=== PATIENT | female | born 1990 | race Caucasian/White ===

== ENCOUNTER → 2017-12-28 | Outpatient (CLI) | payer MEDICAID ==
--- NOTE | 2017-12-28 12:30 | MR ---
EXAMINATION TYPE: MR knee LT wo con DATE OF EXAM: 12/28/2017 COMPARISON: Plain film 12/03/2017 HISTORY: Pain in left knee / Effusion, left knee TECHNIQUE: Multiplanar, multisequence imaging of the left knee is performed without IV contrast. FINDINGS: MEDIAL MENISCUS: Posterior horn of the medial meniscus shows some increased signal does not clearly e xtend to the articular surface LATERAL MENISCUS: Anterior and posterior horns are intact without tear. CRUCIATE LIGAMENTS: The anterior and posterior cruciate ligaments are intact and unremarkable. COLLATERAL LIGAMENTS: The medial collateral ligament and lateral collateral ligament complex are inta ct and unremarkable. EXTENSOR MECHANISM: Visualized quadriceps and patellar tendons are intact. EFFUSION: No significant suprapatellar joint effusion. POPLITEAL CYST: Minimal fluid in the semimembranosus gastrocnemius fossa TRICOMPARTMENT SPACES: Maintained CARTILAGE: Maintained, sclerotic focus seen on plain film correlates to bone island in the lateral fe moral condyle as well as medial metaphyseal tibia. BONE MARROW SIGNAL: No focal abnormal marrow signal is appreciated. OTHER: Minimal prepatellar subcutaneous edema is present along the proximal extent of the patellar t endon IMPRESSION: Nonspecific findings described above.
== END | disposition home or self-care (01) ==
LOC: RADMRIMAIN 08:37
PROVIDERS: ATTEND Orthopaedic Surgery Sports Medicine
DX: M94.8X6 Other specified disorders of cartilage, lower leg (principal); R60.0 Localized edema

== ENCOUNTER → 2021-06-27 | Outpatient (CLI) | payer MEDICAID ==
[2021-06-27 23:22] LABS: HCT 35.5 % (37.2-46.3); HGB 11.9 g/dL (12.0-15.0); MCH 30.4 pg (27.0-32.0); MCHC 33.5 g/dL (32.0-37.0); MCV 90.8 fL (80.0-97.0); Mean Platelet Volume 10.9 fL (9.5-12.2); Platelet Count 244 X 10*3/uL (140-440); RBC 3.91 X 10*6/uL (4.10-5.20); WBC 11.64 X 10*3/uL (4.50-10.00)
[2021-06-27 23:33] LABS: African American GFR (CKD) 137.7 (60.0-200.0); Non-African American GFR(CKD) 118.8 (60.0-200.0)
[2021-06-27 23:57] LABS: Hepatitis B Surface Antigen Nonreactive (Nonreactive)
[2021-06-28 01:13] LABS: HIV 2 AB Non-Reactive (Non-Reactive); HIV AB P24 Non-Reactive (Non-Reactive); HIV P24 AG Non-Reactive (Non-Reactive)
--- NOTE | 2021-06-28 06:32 | US ---
EXAMINATION TYPE: Transabdominal DATE OF EXAM: 06/27/2021 3:46 PM COMPARISON: NONE CLINICAL HISTORY: Z36.89 ENCOUNTER FOR OTHER SPECIFIED SCREENING. Dates. Positive beta-hCG test. EXAM PERFORMED: Transabdominal (TA) EXAM MEASUREMENTS: GESTATIONAL AGE / DATING Physician Established: Not yet established Dates by LMP: (12 weeks/1 days) EDC: 01/08/2022 Dates by First Scan: No previous this is first scan Dates by Current Scan for: (12 weeks/0 days) EDC: 01/09/2022 MATERNAL ANATOMY Uterus: 10.5 x 9.3 x 8.9 cm Right Ovary: 3.5 x 2.0 x 2.9 cm Left Ovary: 4.2 x 3.9 x 2.6 cm Post CDS / Adnexa: no free fluid Presence of free fluid: no Presence of subchorionic bleed: no GESTATION / SURVEY CRL: 5.3 cm (12 weeks/0 days) MSD: seen, not measured Yolk Sac (normal less than 6mm): Not visualized Heart Rate: 165 bpm Rhythm: Normal IUP: Viable IUP Date of LMP: 04/03/2021, G1 Beta HcG (if available): Not available at this time Right ovary lesion = 1.9 x 1.4 x 1.9 cm. Left ovary lesion - 3.6 x 3.4 x 2.5 cm. Single live intrauterine gestation as gestational sac and pole seen. No sac not identified. No free fluid is seen. Both ovaries present. Right ovary has 1.9 cm thin-walled cyst or cystic lesion. Left ovary as larger 3.6 cm slightly heterogeneous hyperechoic lesion could reflect hemorrhagic cyst. No suspicious extra ovarian adnexal masses. IMPRESSION: Single live intrauterine gestation is confirmed. Mean crown-rump length measures 5.3 cm c orresponding to 12 weeks 0 day old fetus.
[2021-06-30 06:06] LABS: Toxoplasma Antibody (IgG) >400.0 IU/mL (<7.2); Toxoplasma Antibody (IgM) <3.0 AU/mL (<8.0)
== END | disposition home or self-care (01) ==
LOC: RADUSWWP 15:26
PROVIDERS: ATTEND Obstetrics & Gynecology
DX: Z36.89 Encounter for other specified antenatal screening (principal)
CPT/HCPCS: 76801; 82565; 82947; 85027; 86762; 86777; 86778; 86780; 86850; 86900; 86901; 87340; 87390

== ENCOUNTER → 2021-08-08 | Outpatient (CLI) | payer MEDICAID ==
--- NOTE | 2021-08-08 10:56 | US ---
EXAMINATION TYPE: US OB anatomy transabd DATE OF EXAM: 08/08/2021 COMPARISON: First trimester ultrasound June 27, 2021 HISTORY: O36.62X0 MATERNAL CARE FOR EXCESS GROWTH TECHNIQUE: Transabdominal (TA) EXAM MEASUREMENTS: GESTATIONAL AGE / DATING Dates by LMP: (18 weeks/1 days) EDC: 01/08/2022 Dates by First Scan: (18 weeks/1 days) EDC: 01/08/2022 Dates by Current Scan for: (18 weeks/4 days) EDC: 01/05/2022 SURVEY IUP: Single PLACENTA: Anterior PREVIA: No previa CAROLINE: 10.55 cm Normal CERVICAL LENGTH (transabdominal: norm > 3.0cm): 4.5 cm BIOMETRY PRESENTATION: Vertex LIE: Longitudinal BPD: 4.18 cm 18 weeks / 5 days HC: 15.1 cm 18 weeks / 2 days AC: 12.56 cm 18 weeks / 2 days FL: 2.78 cm 18 weeks / 4 days ESTIMATED WEIGHT IN GRAMS: 234 grams ESTIMATED WEIGHT IN LBS/OZ: 0 lbs. 8 oz. WEIGHT PERCENTAGE BASED ON ESTABLISHED DATE: 57 % HC/AC: 1.2 Normal FL/AC: 22 Normal HEART RATE: 144 bpm RHYTHM: Normal ANATOMY SEEN (within normal limits): * Lateral Vent (< 1 cm) 0.6 cm * Cisterna Magna (< 1.1 cm) 0.4 cm * Nuchal Fold (< 0.6 cm) 0.3 cm * Cerebellum (varies with age) 1.7 cm Choroid Plexus (bilateral) Midline Falx Cavus Septi Pellucidi Four Chamber Heart Outflow tracts: LVOT/RVOT Stomach Situs Nose / Lips Diaphragm Kidneys (bilateral) Bladder Cord Insert Three Vessel Cord Longitudinal Spine Transverse Spine Arms (bilateral) Legs (bilateral) No abnormal cervical thinning. Single live intrauterine gestation redemonstrated. No placenta previa. Estimated amniotic fluid index within normal limits. biometry measurements congruent with sati sfactory interval growth. During Real-time scanning no anatomical abnormality identified. IMPRESSION: As above.
== END | disposition home or self-care (01) ==
LOC: RADUSWWP 08:50
PROVIDERS: ATTEND Obstetrics & Gynecology
DX: O36.62X0 Maternal care for excessive fetal growth, second trimester, not applicable or unspecified (principal)
CPT/HCPCS: 76811

== ENCOUNTER → 2021-09-26 | Outpatient (CLI) | payer MEDICAID ==
[2021-09-26 14:23] LABS: HCT 34.1 % (37.2-46.3); HGB 10.9 g/dL (12.0-15.0); MCH 30.9 pg (27.0-32.0); MCV 96.6 fL (80.0-97.0); Mean Platelet Volume 10.9 fL (9.5-12.2); NRBC Per 100 WBC 0 /100 WBCS (0.0-0.0); Platelet Count 220 X 10*3/uL (140-440); RBC 3.53 X 10*6/uL (4.10-5.20); RDW 13.1 % (11.5-14.5); WBC 8.59 X 10*3/uL (4.50-10.00)
== END | disposition home or self-care (01) ==
LOC: LABWHC1 08:40
PROVIDERS: ATTEND Obstetrics & Gynecology
DX: Z34.02 Encounter for supervision of normal first pregnancy, second trimester (principal)
CPT/HCPCS: 36415; 82950; 85027

== ENCOUNTER → 2021-12-08 | Outpatient (CLI) | payer MEDICAID ==
--- NOTE | 2021-12-09 07:12 | US ---
EXAMINATION TYPE: US OB >= 14 wk fetus DATE OF EXAM: 12/08/2021 COMPARISON: 08/08/2021 CLINICAL HISTORY: O36.63X0 LARGE FOR DATES Growth TECHNIQUE: Transabdominal (TA) GESTATIONAL AGE / DATING Physician Established: (35 weeks/4 days) EDC: 01/08/2022 Dates by LMP: (35 weeks/4 days) EDC: 01/08/2022 Dates by Current Scan: (35 weeks/4 days) EDC: 01/08/2022 Beta HCG (if available): Not available at this time SURVEY IUP: Single PLACENTA: Anterior/Fundal PREVIA: No Previa CAROLINE: 17.7 cm Normal CERVICAL LENGTH (transabdominal: norm > 3.0cm): 3.0 cm BIOMETRY PRESENTATION: Vertex BPD: 8.9 cm 36 weeks / 1 days HC: 31.7 cm 35 weeks / 5 days AC: 31.3 cm 35 weeks / 2 days FL: 6.8 cm 35 weeks / 0 days ESTIMATED WEIGHT IN GRAMS: 2637 grams ESTIMATED WEIGHT IN LBS/OZ: 5 lbs. 13 oz. WEIGHT PERCENTAGE BASED ON ESTABLISHED DATES: 40% HC/AC: 1.0 Normal FL/AC: 22% Normal HEART RATE: 132 bpm RHYTHM: Normal Single live IUP measuring 35 weeks 4 days. IMPRESSION: Single viable intrauterine 35 weeks 4 days
== END | disposition home or self-care (01) ==
LOC: RADUSWWP 16:08
PROVIDERS: ATTEND Obstetrics & Gynecology
DX: O36.63X0 Maternal care for excessive fetal growth, third trimester, not applicable or unspecified (principal); Z3A.00 Weeks of gestation of pregnancy not specified
CPT/HCPCS: 76805

== ENCOUNTER 2021-12-25 09:55 | Inpatient (IN) | payer MEDICAID ==
[2021-12-25] MEDS ORDERED: METHYLERGONOVINE 0.2 MG/ML 1 ML AMP IM PRN (10:38)
[2021-12-25] MEDS ORDERED: TERBUTALINE 1 MG/ML VIAL SQ PRN (10:38)
[2021-12-25] MEDS ORDERED: LIDOCAINE 0.5% (PF) 5 MG/ML (50 ML SDV) SQ PRN (10:38)
[2021-12-25] MEDS ORDERED: OXYTOCIN 10 UNIT/ML 1 ML VIAL IM PRN (10:38)
[2021-12-25] MEDS ORDERED: CARBOPROST TROMETHAMINE 250 MCG/ML 1 ML AMP IM PRN (10:38)
[2021-12-25] MEDS: LACTATED RINGERS 1,000 ML IV SCH ×2 (11:05→16:15)
[2021-12-25 11:27] LABS: Basophils # (A) 0.1 k/uL (0-0.2); Basophils % (A) 1 %; Eosinophils # (A) 0.1 k/uL (0-0.7); Eosinophils % (A) 1 %; HCT 35.3 % (34.0-46.0); HGB 11.8 gm/dL (11.4-16.0); Lymphocytes # (A) 2.1 k/uL (1.0-4.8); Lymphocytes % (A) 26 %; MCH 31.8 pg (25.0-35.0); MCHC 33.4 g/dL (31.0-37.0); MCV 95.2 fL (80.0-100.0); Mean Platelet Volume 9.2; Monocytes # (A) 0.3 k/uL (0-1.0); Monocytes % (A) 4 %; Neutrophils # (A) 5.3 k/uL (1.3-7.7); Neutrophils % (A) 65 %; Platelet Count 217 k/uL (150-450); RBC 3.71 m/uL (3.80-5.40); RDW 12.9 % (11.5-15.5); WBC 8.2 k/uL (3.8-10.6)
--- NOTE | 2021-12-25 11:31 | P.HPOB ---
History of Present Illness H&P Date: 12/25/21 Chief Complaint: Spotting and leaking of fluid with contractions This patient is a pleasant 31-year-old 1 para 0 female estimated date of confinement 01/08/2022 estimated gestational age 38 weeks gestation who presents to labor and delivery after having some spotting and small amount of leaking at 6 AM this morning. Patient's also been having contractions throughout the night. care has been uncomplicated. Her is the product of donor sperm. Growth ultrasounds have been normal. Patient is found to be in early labor with possible rupture membranes at 6 AM. Review of Systems Genitourinary: Reports Menstruation: Reports amenorrhea Past Medical History Past Medical History: No Reported History History of Any Multi-Drug Resistant Organisms: None Reported Past Surgical History: No Surgical Hx Reported Additional Past Surgical History / Comment(s): Patient's had Lasix surgery Past Anesthesia/Blood Transfusion Reactions: No Reported Reaction Past Psychological History: No Psychological Hx Reported Smoking Status: Never smoker Past Alcohol Use History: None Reported Past Drug Use History: None Reported - Past Family History Mother Family Medical History: No Reported History Medications and Allergies Home Medications Medication Instructions Recorded Confirmed Type Pnv 11/Iron Fum/Folic Acid/Om3 1 each PO DAILY 12/25/21 12/25/21 History [Virt-Srikanth Dha Softgel] Allergies Allergy/AdvReac Type Severity Reaction Status Date / Time No Known Allergies Allergy Verified 12/25/21 10:06 Exam Vital Signs Temp Pulse Resp BP Pulse Ox 12/25/21 10:33 97.2 F L 73 16 119/78 97 12/25/21 10:29 97.2 F L 73 16 119/78 97 Intake and Output 12/24/21 12/25/21 12/25/21 22:59 06:59 14:59 Other: Weight 70.307 kg - OBG Physical Exam Abdomen: bowel sounds normal, no diffuse tenderness, no bruit present, no guarding noted, no hepatomegaly, no splenomegaly, no mass Vulva: both: normal Vagina: normal moisture, no discharge Cervix: no lesion (Cervix is 3 cm 50% effaced and 0 station), no discharge Uterus: enlarged (Fundus is 37 cm) Results blood work shows she is A positive, rubella immune, RPR nonreactive, hepatitis B negative, HIV is nonreactive,: Was normal, group B strep was negative, ultrasound done on December 08 of the baby 5 lbs. 13 oz. Assessment and Plan Assessment: This is a pleasant 31-year-old 1 para 0 female 38-0/7 weeks gestation with early labor and possible rupture membranes at 6 AM this morning. Plan is augmentation of labor if necessary, pain control, and anticipate vaginal delivery. (1) 38 weeks gestation of Current Visit: Yes Status: Acute Code(s): Z3A.38 - 38 WEEKS GESTATION OF SNOMED Code(s): 55420181 (2) Spontaneous rupture of amniotic membranes Current Visit: Yes Status: Acute Code(s): VTY5206 - SNOMED Code(s): 401628166
[2021-12-25] MEDS ORDERED: OXYTOCIN 30 UNITS/500 ML NS 30 UNIT in SALINE 1 500ML.BAG IV SCH ×2 (13:00→18:58)
[2021-12-25] MEDS ORDERED: ZOLPIDEM 5 MG TAB PO PRN (18:58)
[2021-12-25] MEDS ORDERED: bisacodyL 10 MG SUPP RECTAL PRN (18:58)
[2021-12-25] MEDS ORDERED: HYDROCORTISONE 2.5% RECTAL CREAM 30 GM TUBE RECTAL PRN (18:58)
[2021-12-25] MEDS ORDERED: ACETAMINOPHEN TAB 325 MG TAB PO PRN (18:58)
[2021-12-25] MEDS ORDERED: diphenhydrAMINE 50 MG/ML 1 ML VIAL IVP PRN (18:58)
[2021-12-25] MEDS ORDERED: SIMETHICONE 80 MG CHEWABLE PO PRN (18:58)
[2021-12-25] MEDS ORDERED: LANOLIN CREAM 5 GM TUBE TOPICAL PRN (18:58)
[2021-12-25] MEDS ORDERED: diphenhydrAMINE 25 MG CAP PO PRN (18:58)
[2021-12-25] MEDS ORDERED: BENZOCAINE/MENTHOL SPRAY 1 GM/SPRAY AEROSOL TOPICAL PRN (18:58)
[2021-12-25] MEDS ORDERED: IBUPROFEN 600 MG TAB PO PRN (18:58)
--- NOTE | 2021-12-25 19:18 | P.PROBDLV ---
Vaginal Delivery Note - . Vaginal Delivery Note: The patient reached complete dilation after spontaneous rupture of membranes with clear fluid noted. She then began pushing. She pushed for a very short while and then 's head came to a crown. With one further push, the infant's head delivered across the perineum followed by the anterior shoulder. Nose and mouth were bulb suctioned at the perineum. With one further push, the remainder the infant easily delivered and was placed on mother's abdomen. Cord was clamped and cut and was taken to warmer for evaluation. A viable male infant is noted with scores of 9 at 1 minute and 9 at 5 minutes and infant weight of 7 lbs. 6 oz. Next placenta delivered shortly thereafter, intact, with a three-vessel cord. Uterus initially contracted fairly well with oxytocin and uterine massage. Inspection of the perineum revealed a second- degree perineal laceration with an extension up both sides of the vagina. All areas were anesthetized with 1% lidocaine. The vaginal extensions were sutured with 3-0 Vicryl suture in a running locked fashion up to the introitus. The remainder of the repair was repaired in usual multilayer fashion with 3-0 and 2- 0 Vicryl suture. She was noted to have some blood clot collecting in the vaginal vault. A gloved hand was inserted in the clots were removed along with some clots from within the uterus. Once the clots were removed bleeding slowed and uterus did still feel firm. There was a small amount of membranous tissue removed with the clot. Estimated blood loss was approximately 300 mL's. Both mother and are in stable condition.
[2021-12-25] MEDS: SENNOSIDES-DOCUSATE SODIUM 1 EACH TAB PO SCH (20:53)
--- NOTE | 2021-12-26 06:01 | P.PNOBGVD ---
Subjective - Subjective Patient reports: Reports appetite normal, Reports voiding normally, Reports pain well controlled, Reports ambulating normally : doing well Objective - Latest Vital Signs Latest vital signs: Vital Signs Temp Pulse Pulse Resp BP Pulse Ox 12/26/21 04:00 98.2 F 73 18 105/67 99 12/25/21 23:39 98.3 F 102 H 18 103/69 97 12/25/21 21:05 98.2 F 68 16 110/61 12/25/21 20:35 98.0 F 72 16 102/57 12/25/21 20:05 97.9 F 74 16 107/65 12/25/21 19:50 98.1 F 77 16 116/65 12/25/21 19:35 98.4 F 69 16 118/62 12/25/21 19:20 98.7 F 72 16 106/58 12/25/21 19:05 99.2 F 70 16 110/65 12/25/21 10:33 97.2 F L 73 16 119/78 97 12/25/21 10:29 97.2 F L 73 16 119/78 97 Intake and Output 12/25/21 12/25/21 12/26/21 14:59 22:59 06:59 Intake Total 178.5 540 Output Total 505 Balance -326.5 540 Intake: Intake, IV Titration 178.5 Amount Oxytocin 30 Units/500 ml 178.5 Ns 30 unit In Saline 1 500ml.bag @ Per Protocol IV .Q0M YANELY Rx#:[id number] Oral 540 Output: Estimated Blood Loss 300 Output, Quantitative 205 Blood Loss Other: # Voids 2 1 1 Weight 70.307 kg - Exam Lungs: bilateral: normal Chest: Normal S1, Normal S2 Extremities: Present: normal Abdomen: Present: normal appearance, soft Uterus: Present: normal, firm - Labs Labs: Abnormal Lab Results - Last 24 Hours (Table) 12/25/21 Range/Units 11:02 RBC 3.71 L (3.80-5.40) m/uL Assessment and Plan Assessment: Post day #1. Patient is resting without complaints and wishes to go home. Vital signs are stable she is afebrile. Uterus is firm nontender she is having normal lochia. My impression this is a normal course. Plan is to continue routine care discharge home later today. (1) 38 weeks gestation of Current Visit: Yes Status: Acute Code(s): Z3A.38 - 38 WEEKS GESTATION OF SNOMED Code(s): 17917200 (2) Spontaneous rupture of amniotic membranes Current Visit: Yes Status: Acute Code(s): MDQ7175 - SNOMED Code(s): 145530017
--- NOTE | 2021-12-26 06:05 | P.DS ---
Providers Date of admission: 12/25/21 10:26 Expected date of discharge: 12/26/21 Attending physician: Addy Miller Primary care physician: Stated None - Discharge Diagnosis(es) (1) 38 weeks gestation of Current Visit: Yes Status: Acute (2) Spontaneous rupture of amniotic membranes Current Visit: Yes Status: Acute Hospital Course: Please see dictated H&P for intimate details of this patient's admission. Brief summary this pleasant 31-year-old 1 para 0 female 38-0/7 weeks gestation admitted to labor and delivery with early active labor and spontaneous rupture membranes. Patient goes on to have a vaginal delivery viable male . Please see dictated delivery note. day 1 patient's without complaints wishes to go home. Patient's felt to be stable for discharge home follow up with me in 6 weeks. Procedures: Normal spontaneous vaginal delivery Patient Condition at Discharge: Good Plan - Discharge Summary New Discharge Prescriptions: New Ibuprofen [Motrin] 600 mg PO Q6HR PRN #30 tab PRN Reason: Mild Pain (Scale 1 To 3) No Action Pnv 11/Iron Fum/Folic Acid/Om3 [Virt-Srikanth Dha Softgel] 1 each PO DAILY Discharge Medication List Pnv 11/Iron Fum/Folic Acid/Om3 [Virt-Srikanth Dha Softgel] 1 each PO DAILY 12/25/21 [History] Ibuprofen [Motrin] 600 mg PO Q6HR PRN #30 tab 12/26/21 [Rx] Follow up Appointment(s)/Referral(s): Addy Miller MD [STAFF PHYSICIAN] - 6 Weeks Patient Instructions/Handouts: Vaginal Delivery (DC) Activity/Diet/Wound Care/Special Instructions: No intercourse or anything per vagina for 6 weeks. Please call if any fever, chills, excessive vaginal bleeding, and/or abdominal pain. Discharge Disposition: HOME SELF-CARE
[2021-12-26 06:31] LABS: Basophils % (A) 0 %; Eosinophils % (A) 0 %; HCT 29.3 % (34.0-46.0); Lymphocytes # (A) 1.6 k/uL (1.0-4.8); Lymphocytes % (A) 13 %; MCHC 32.9 g/dL (31.0-37.0); MCV 94.5 fL (80.0-100.0); Mean Platelet Volume 8.9; Monocytes # (A) 0.5 k/uL (0-1.0); Monocytes % (A) 4 %; Neutrophils # (A) 10.2 k/uL (1.3-7.7); Neutrophils % (A) 81 %; Platelet Count 193 k/uL (150-450); RBC 3.11 m/uL (3.80-5.40); RDW 12.6 % (11.5-15.5); WBC 12.6 k/uL (3.8-10.6)
[2021-12-26 06:39] LABS: HGB 9.6 gm/dL (11.4-16.0)
[2021-12-26] MEDS: SENNOSIDES-DOCUSATE SODIUM 1 EACH TAB PO SCH (08:25)
[2021-12-26 08:47] VITALS: BP 102/63; RESP 14; TEMP 98.8
[2021-12-26] MEDS ORDERED: ROPIVACAINE 100 MG, fentaNYL (PF). 200 MCG in SODIUM CHLORIDE 0.9% 76 ML EPIDURAL ONE (10:53)
[2021-12-27 08:28] VITALS: PULSE 102
--- NOTE | 2021-12-27 08:28 | P.MSEPDOC ---
Presenting Problems - Arrival Data Date of Arrival on Unit: 12/25/21 Time of Arrival on Unit: 10:30 Mode of Transport: Ambulatory - Complaint OB-Reason for Admission/Chief Complaint: Vaginal Bleeding Comment: Cramping, LOF and VB since 0600 Medical History - Information : 1 Para: 0 Term: 0 : 0 Abortions: Spontaneous or Elective: 0 Number of Living Children: 0 - Gestational Age Gestational Age by SARA (wks/days): 38 Weeks and 0 Days Review of Systems - Review of Systems Constitutional: No problems Breast: No problems ENT: No problems Cardiovascular: No problems Respiratory: No problems Gastrointestinal: No problems Genitourinary: No problems Musculoskeletal: No problems Neurological: No problems Skin: No problems Vital Signs - Temperature Temperature: 98.8 F Temperature Source: Oral - Pulse Right Sitting Brachial Pulse Rate: 102 Pulse Assessment Method: Pulse Oximetry Pulse Oximetery Pulse Rate: 98 Pulse Assessment Method: Automatic Cuff - Respirations Respiratory Rate: 14 Oxygen Delivery Method: Room Air - Blood Pressure Right Arm Sitting Blood Pressure: 102/63 Blood Pressure Mean: 76 Blood Pressure Source: Automatic Cuff Medical Screen Scoring - Cervical Exam Dilation (cm): 1.5 Effacement (%): 70 Station: -2 Membranes: Ruptured - Uterine Contractions Frequency From (mins): 2 Frequency To (mins): 3 Duration From (seconds): 40 Duration To (seconds): 60 Intensity: Mild Resting: Soft to palpation - Assessment - Baby A Baseline FHR: 140 Heart Rate - NICHD Category: Category I (Normal) NST: Reactive Physician Notification - Physician Notified Physician Notified Date: 12/25/21 Physician Notified Time: 10:30 Physician: Addy Miller - Notification Comment Comment: Spk c\Dr. Miller, aware of pts arrival, , 38.0, spotting/cramping since. 0600. Amnisure positive, reviewed discoloration of fluid. SVE 1.5/70/-2. Orders rec'd to. admit pt for labor. Maternal Triage Index - Maternal Triage Index Presenting for scheduled procedure w/no complaint: No - Stat/Priority 1 Stat Priority 1: No - Urgent/Priority 2 Urgent Priority 2: No - Prompt/Priority 3 Prompt Priority 3: Yes Criteria Met for Priority 3: Cramping, bleeding, SROM Disposition - Disposition OB Disposition: Admit, LDRP Suite Discharge Date: 12/26/21 Discharge Time: 19:48 I agree with the RN Medical Screening Exam: Yes Case reviewed; plan agreed upon as documented in EMR&OBIX.: Yes Diagnosis: ENCOUNTER FOR FULL-TERM UNCOMPLICATED DELIVERY
== END 2021-12-26 19:49 | disposition home or self-care (01) | DRG 807 ==
LOC: FBPOP 09:55 → 4FBP 10:26
PROVIDERS: ADMIT Obstetrics & Gynecology; ATTEND Obstetrics & Gynecology
PROC: 10E0XZZ Delivery of Products of Conception, External Approach (ICD-10-PCS; principal; 2021-12-25)
PROC: 0KQM0ZZ Repair Perineum Muscle, Open Approach (ICD-10-PCS; 2021-12-25)
DX: O80 Encounter for full-term uncomplicated delivery (principal); Z37.0 Single live birth; Z3A.38 38 weeks gestation of pregnancy; O70.1 Second degree perineal laceration during delivery; Z79.899 Other long term (current) drug therapy
CPT/HCPCS: 59025; 84112; 85025; 86850; 86900; 86901; 99213